=== PATIENT | male | born 1985 | race Caucasian/White ===

== ENCOUNTER 2016-07-05 23:23 | Emergency (ER) | payer BC ==
[~2016-07-05] VITALS: Ht 185.4 cm; Wt 74.6 kg
[2016-07-06 01:02] LABS: ADD MIUA? NO; BILIRUBIN NEGATIVE; BLOOD NEGATIVE; COLOR YELLOW ((YELLOW)); GLUCOSE (STRIP) NEGATIVE; KETONES NEGATIVE; LEUKOCYTES NEGATIVE; NITRITE NEGATIVE; PROTEIN (STRIP) NEGATIVE; SPECIFIC GRAVITY 1.011 (1.000-1.030); UCUL ADDED? NO; UROBILINOGEN 0.2 MG/DL (0.2-1.0)
[2016-07-06 02:14] LABS: HEMATOCRIT 42.3 % (38.0-50.0); MCH 31.5 PG (29.0-34.0); MCHC 34.3 G/DL (30.0-36.0); MEAN PLAT.VOLUME 9.4 uM^3 (9.0-12.4); PLATELET COUNT 184 K/uL (156-360); RBC DIS.WIDTH-CV 12.1 % (11.8-14.6); RBC DIS.WIDTH-SD 39.6 % (39-53); WHITE BLOOD COUNT 6.8 K/uL (4.1-10.2)
[2016-07-06 02:31] LABS: CHLORIDE 108 mEq/L (99-109); POTASSIUM 3.9 mEq/L (3.7-5.4); SODIUM 142 mEq/L (136-147)
[2016-07-06 02:33] LABS: GLUCOSE 90 mg/dL (70-99)
[2016-07-06 02:34] LABS: ANION GAP 10 MEQ/L (2-14)
[2016-07-06 02:36] LABS: GFR ESTIMATE (CALCULATED) > 59 mL/min/
[2016-07-06 02:37] LABS: UREA NITROGEN (BUN) 20 mg/dL (9-23)
[2016-07-06 05:37] VITALS: BP 130/70
[2016-07-06 13:27] LABS: CHLAMYDIA TRACHOMATIS NEGATIVE; NEISSERIA GONORRHOEAE NEGATIVE
== END 2016-07-06 05:37 | disposition home or self-care (01) ==
LOC: EME 23:23
PROVIDERS: Physician Assistant
DX: R10.30 Lower abdominal pain, unspecified (principal); R30.0 Dysuria
CPT/HCPCS: 74176; 80048; 81003; 85027; 87491; 87591; 99281; 99283

== ENCOUNTER 2017-03-04 11:11 | Emergency (ER) | payer BC ==
[~2017-03-04] VITALS: Ht 182.9 cm; Wt 73.6 kg
[2017-03-04 12:22] LABS: MCH 30.8 PG (29.0-34.0); MCHC 32.8 G/DL (30.0-36.0); MCV 93.9 FL (86-99); MEAN PLAT.VOLUME 9.4 uM^3 (9.0-12.4); PLATELET COUNT 186 K/uL (156-360); RBC DIS.WIDTH-CV 11.9 % (11.8-14.6); RBC DIS.WIDTH-SD 41.1 % (39-53); WHITE BLOOD COUNT 4.8 K/uL (4.1-10.2)
[2017-03-04 12:33] LABS: CHLORIDE 104 mEq/L (99-109); POTASSIUM 4.2 mEq/L (3.7-5.4); SODIUM 139 mEq/L (136-147)
[2017-03-04 12:35] LABS: GLUCOSE 92 mg/dL (70-99)
[2017-03-04 12:36] LABS: ANION GAP 7 MEQ/L (2-14)
[2017-03-04 12:37] LABS: TOTAL BILIRUBIN 0.8 mg/dL (0.0-1.0)
[2017-03-04 12:38] LABS: ALKALINE PHOSPHATASE 56 IU/L (3-129)
[2017-03-04 12:39] LABS: GFR ESTIMATE (CALCULATED) > 59 mL/min/
[2017-03-04 12:40] LABS: UREA NITROGEN (BUN) 16 mg/dL (9-23)
[2017-03-04 14:07] LABS: ADD MIUA? NO; BILIRUBIN NEGATIVE; BLOOD NEGATIVE; COLOR YELLOW ((YELLOW)); GLUCOSE (STRIP) NEGATIVE; KETONES NEGATIVE; LEUKOCYTES NEGATIVE; NITRITE NEGATIVE; PROTEIN (STRIP) NEGATIVE; SPECIFIC GRAVITY 1.019 (1.000-1.030); UROBILINOGEN 0.2 MG/DL (0.2-1.0)
[2017-03-04 14:13] LABS: UCUL ADDED? NO
[2017-03-04] MEDS ORDERED: CITRATE OF MAG296 ML PO (14:31)
[2017-03-04 15:17] VITALS: BP 142/74
== END 2017-03-04 15:17 | disposition home or self-care (01) ==
LOC: EME 11:11
DX: K59.00 Constipation, unspecified (principal)
CPT/HCPCS: 80053; 81003; 85027; 99281; 99284